=== PATIENT | male | born 1995 | race Two or more races ===

== ENCOUNTER 2017-03-15 16:05 | Emergency (ER) | payer OTHER ==
[~2017-03-15] VITALS: Ht 180.3 cm; Wt 61.2 kg
[2017-03-15 16:13] VITALS: BP 121/71
[2017-03-15] MEDS ORDERED: IBUPROFEN600 MG ORAL (17:59)
[2017-03-15 18:08] VITALS: BP 121/71
[2017-03-15 18:09] VITALS: BP 121/71
--- NOTE | 2017-03-15 21:30 | Emergency Room Report ---
History of Present Illness General Chief Complaint: Upper Extremity Injury Source: Patient (DAVIS CHAVARRIA) Present Illness HPI The patient is a 21-year-old male presenting for right elbow pain. He states that he slipped and fell at work approximately 4 months prior and did not receive any treatment. He states that he fell directly onto the right elbow. He denies hitting his head or loss of consciousness. Pain has decreased and is now a 2/10 dull ache. Worse with movement. He denies any numbness or tingling. He denies previous injury to the elbow. He denies any other symptoms (DAVIS CHAVARRIA) Allergies: Coded Allergies: PENICILLINS (Verified Allergy, Unknown, 03/15/17) Patient History Past Medical History: see triage record Pertinent Family History: none Reviewed Nursing Documentation: PMH: Agreed, PSxH: Agreed (DAVIS CHAVARRIA) Nursing Documentation-PMH Past Medical History: No Stated History (DAVIS CHAVARRIA) Review of Systems All Other Systems: negative except mentioned in HPI (DAVIS CHAVARRIA) Physical Exam Vital Signs Date Time Temp Pulse Resp B/P (MAP) Pulse Ox O2 Delivery O2 Flow Rate FiO2 03/15/17 16:11 98.1 89 20 121/71 99 Sp02 EP Interpretation: reviewed, normal General Appearance: no apparent distress, alert, GCS 15, non-toxic Head: normocephalic, atraumatic Eyes: bilateral eye normal inspection, bilateral eye PERRL ENT: hearing grossly normal, normal pharynx, no angioedema, normal voice Neck: full range of motion, supple/symm/no masses Musculoskeletal: normal inspection, digits/nails normal, gait/station normal, normal range of motion, non-tender - R elbow Neurologic: alert, oriented x3, responsive, motor strength/tone normal, sensory intact, speech normal Skin: normal color, no rash, warm/dry, well hydrated Lymphatic: no adenopathy (DAVIS CHAVARRIA) Medical Decision Making PA Attestation Dr. Lazcano is my supervising physician. Patient management was discussed with my supervising physician (DAVIS CHAVARRIA) Diagnostic Impression: Primary Impression: Elbow pain, right ER Course The patient is a 21-year-old male presenting for right elbow pain. Ddx considered include but not limited to sprain/strain, fracture, contusion PE: NAD Right elbow: Full active range of motion. No obvious deformity. No edema. Nontender. No Crepitus. X-ray of the right elbow is unremarkable The patient discharged home with prescription for Motrin. He will continue to apply ice to the area he needs to followup with his primary doctor. ER precautions are given (DAVIS CHAVARRIA) Other X-Ray Diagnostic Results Other X-Ray Diagnostic Results : X-Ray ordered: R elbow # of Views/Limited Vs Complete: 3 View Indication: Pain EP Interpretation: Yes Interpretation: no dislocation, no soft tissue swelling Impression: No acute disease Electronically Signed by: MARICARMEN Lora Text I have reviewed the xray with my supervising physician and interpretation is that there are no fractures, dislocations or soft tissue swelling. (DAVIS CHAVARRIA) Other X-Ray Diagnostic Results : Electronically Signed by: Nisha documentation reviewed by me and is accurate, Ed Lazcano MD. (Ed Lazcano M.D.) Last Vital Signs Date Time Temp Pulse Resp B/P (MAP) Pulse Ox O2 Delivery O2 Flow Rate FiO2 03/15/17 18:09 98.1 68 20 121/71 99 Status: improved (DAVIS CHAVARRIA) Disposition: HOME, SELF-CARE Condition: Improved Scripts Ibuprofen* (MOTRIN*) 600 Mg Tablet 600 MG ORAL Q8H Y for For Pain, #30 TAB 0 Refills Prov: DAVIS CHAVARRIA 03/15/17 Patient Instructions: VIKTOR for Routine Care of Injuries Additional Instructions: I discussed my findings with the patient. All questions and concerns have been answered. Treatment and medication compliance have been addressed. I advised the patient that they need to follow up with PMD in 3-5 days. Return to ED if pain remains or worsens, numbness or tingling occurs, new rash is noticed, fever is noticed, or if needed for any reason. Patient verbalized understanding of discharge instructions. DAVIS CHAVARRIA Mar 15, 2017 21:30 Ed Lazcano M.D. Mar 16, 2017 05:28
--- NOTE | 2017-03-16 10:27 | Diagnostic Imaging Report ---
Indication: Pain Findings: 3 views of the right elbow were obtained. No acute fractures, malalignment, erosions or periostitis are identified. Bone mineralization is within normal limits. Soft tissues are unremarkable. Impression: Negative examination of the elbow.
== END 2017-03-15 18:09 | disposition home or self-care (01) ==
LOC: EMR 17:48
DX: M25.521 Pain in right elbow (principal); W01.0XXA Fall on same level from slipping, tripping and stumbling without subsequent striking against object, initial encounter; Y92.69 Other specified industrial and construction area as the place of occurrence of the external cause; Y99.0 Civilian activity done for income or pay
CPT/HCPCS: 99283